=== PATIENT | female | born 1940 | race Caucasian/White ===

== ENCOUNTER 2020-09-12 11:45 | Inpatient (IN) | payer MEDICARE ==
[2020-09-12] MEDS ORDERED: Ondansetron 4 MG/2 ML SDV IVPUSH ONE (11:57)
[2020-09-12] MEDS ORDERED: Sodium Chloride 0.9% 1,000 ML IV SCH ×2 (12:00→13:30)
--- NOTE | 2020-09-12 12:23 | EDM.PDOC ---
ED HPI GENERAL MEDICAL PROBLEM - General Stated Complaint: ER Time Seen by Provider: 09/12/20 11:45 Source of Information: Reports: Patient, Family History Limitations: Reports: No Limitations - History of Present Illness INITIAL COMMENTS - FREE TEXT/NARRATIVE: Pt. presents to ER with complaints of fatigue, myalgias, arthralgias, dysuria, discolored urine, and low back pain. She states that she "thinks she is getting a bladder infection". Daughter states that she has been symptomatic for several days. She has been consuming cranberry juice. Pt. states that the symptoms have gotten worse today. She complains of more fatigue and malaise. She states that she feels chilled. She also complains of some lower abdominal/suprapubic pain consistent with UTIs in the past. She also has some CVA tenderness. Pt. states that she has not been around any ill contacts. Denies any cough. No shortness of breath. She denies any chest pain. No rashes or skin eruptions. Daughter states that she has been alert and oriented, but is less active. Location: Reports: Generalized Lower Abdominal Pain Score (Numeric/FACES): 3 - Related Data Allergies Allergy/AdvReac Type Severity Reaction Status Date / Time Penicillins Allergy Hives Verified 09/12/20 13:02 Home Meds: Home Meds Amitriptyline [Elavil] 25 mg PO BEDTIME 07/05/16 [History] Aspirin [Halfprin] 162 mg PO DAILY 07/05/16 [History] Calcium Carbonate/Vitamin D3 [Calcium 500-Vit D3 200 Tablet] 1 tab PO DAILY 07/05/16 [History] Cholecalciferol (Vitamin D3) [Vitamin D3] 2,000 unit PO DAILY 07/05/16 [History] Ciprofloxacin [Ciloxan 0.3% Ophth Soln] 1 drop OP TID 07/05/16 [History] Famotidine [Pepcid] 20 mg PO DAILY 07/05/16 [History] Losartan [Cozaar] 100 mg PO DAILY 07/05/16 [History] Melatonin 3 mg PO BEDTIME 07/05/16 [History] Metoprolol Tartrate [Lopressor] 50 mg PO BID 07/05/16 [History] Nepafenac [Nevanac] 1 drop OP TID 07/05/16 [History] amLODIPine [Norvasc] 5 mg PO DAILY 07/05/16 [History] prednisoLONE Acetate [Pred Forte 1% Ophth Susp] 1 drop OP TID 07/05/16 [History] Multivitamin [Multivitamins] 1 tab PO DAILY 09/07/16 [History] Past Medical History HEENT History: Reports: Cataract Cardiovascular History: Reports: Hypertension Respiratory History: Reports: None Gastrointestinal History: Reports: Celiac Disease, Other (See Below) Other Gastrointestinal History: celiac disease Genitourinary History: Reports: None Musculoskeletal History: Reports: Other (See Below) Other Musculoskeletal History: rt patella fx Neurological History: Reports: TIA Psychiatric History: Reports: Other (See Below) Other Psychiatric History: insomnia Endocrine/Metabolic History: Reports: Osteoporosis Hematologic History: Reports: None Immunologic History: Reports: None Oncologic (Cancer) History: Reports: None Dermatologic History: Reports: None - Past Surgical History HEENT Surgical History: Reports: Cataract Surgery Musculoskeletal Surgical History: Reports: Other (See Below) Social & Family History - Caffeine Use Caffeine Use: Reports: Coffee ED ROS GENERAL - Review of Systems Review Of Systems: See Below Constitutional: Reports: Chills, Malaise, Weakness, Fatigue HEENT: Reports: No Symptoms Respiratory: Reports: No Symptoms Cardiovascular: Reports: No Symptoms Endocrine: Reports: No Symptoms GI/Abdominal: Reports: Abdominal Pain, Nausea. Denies: Anorexia, Black Stool, Bloody Stool, Constipation, Diarrhea, Difficulty Swallowing, Distension, Hematemesis, Hematochezia, Melena, Stool Incontinence, Vomiting : Reports: Dysuria, Flank Pain, Frequency, Pain, Urgency Musculoskeletal: Reports: No Symptoms Skin: Reports: No Symptoms Neurological: Reports: No Symptoms, Dizziness, Headache. Denies: Confusion, Numbness, Paresthesia, Trouble Speaking, Difficulty Walking, Change in Speech, Gait Disturbance Psychiatric: Reports: No Symptoms Hematologic/Lymphatic: Reports: No Symptoms Immunologic: Reports: No Symptoms ED EXAM, GENERAL - Physical Exam Exam: See Below Exam Limited By: No Limitations General Appearance: Alert, WD/WN, No Apparent Distress Nose: Normal Mucosa, No Blood Throat/Mouth: Normal Inspection, Normal Lips, Normal Teeth, Normal Oropharynx, Normal Voice, No Airway Compromise Head: Atraumatic, Normocephalic Neck: Normal Inspection, Supple, Non-Tender, Full Range of Motion Respiratory/Chest: No Respiratory Distress, Lungs Clear, Normal Breath Sounds, No Accessory Muscle Use, Chest Non-Tender Cardiovascular: Normal Peripheral Pulses, Regular Rate, Rhythm, No Edema, No JVD Peripheral Pulses: 4+: Radial (L) GI/Abdominal: Soft, Non-Tender, No Organomegaly, No Distention, No Mass (Female) Exam: Deferred Rectal (Female) Exam: Deferred Back Exam: Normal Inspection, CVA Tenderness (L), CVA Tenderness (R) Extremities: Normal Inspection, Normal Range of Motion, Non-Tender, No Pedal Edema, Normal Capillary Refill Neurological: Alert, Oriented, CN II-XII Intact, Normal Cognition, Normal Gait, Normal Reflexes, No Motor/Sensory Deficits Psychiatric: Normal Affect, Normal Mood Skin Exam: Warm, Dry, Intact, Normal Color, No Rash Lymphatic: No Adenopathy Course - Vital Signs Last Recorded V/S: Last Vital Signs Temp 37.1 C 09/12/20 11:50 Pulse 113 H 09/12/20 11:50 Resp 16 09/12/20 11:50 BP 162/77 H 09/12/20 11:50 Pulse Ox 95 09/12/20 11:50 - Orders/Labs/Meds Orders: Active Orders 24 hr Category Date Time Status Patient Status [ADT] Routine ADT 09/12/20 13:07 Active CULTURE BLOOD [BC] Stat Lab 09/12/20 12:12 Received CULTURE BLOOD [BC] Stat Lab 09/12/20 12:16 Received CULTURE URINE [RM] Stat Lab 09/12/20 11:55 Received Sodium Chloride 0.9% [Normal Saline] 1,000 ml Med 09/12/20 12:00 Active IV ASDIRECTED Sodium Chloride 0.9% [Saline Flush] Med 09/12/20 11:52 Active 10 ml FLUSH ASDIRECTED PRN Blood Culture x2 Reflex Set [OM.PC] Stat Oth 09/12/20 11:52 Ordered Peripheral IV Insertion Adult [OM.PC] Routine Oth 09/12/20 11:52 Ordered Medication Orders Sodium Chloride (Normal Saline) 1,000 mls @ 500 mls/hr IV ASDIRECTED JONATHAN Last Admin: 09/12/20 12:20 Dose: 500 mls/hr Documented by: ZULEIKA Sodium Chloride (Saline Flush) 10 ml FLUSH ASDIRECTED PRN PRN Reason: Keep Vein Open Labs: Laboratory Tests 09/12/20 09/12/20 09/12/20 Range/Units 11:55 12:12 12:12 WBC (4.0-10.0) x10^3/uL RBC (4.00-5.50) x10^6/uL Hgb (12.0-16.0) g/dL Hct (33.0-47.0) % MCV (78.0-93.0) fL MCH (26.0-32.0) pg MCHC (32.0-36.0) g/dL RDW Coeff of Anette (10.0-15.0) % Plt Count (130-400) x10^3/uL Neut % (Auto) (50.0-80.0) % Lymph % (Auto) (25.0-50.0) % [place] % (Auto) (2.0-11.0) % Eos % (Auto) (0.0-4.0) % Baso % (Auto) (0.2-1.2) % PT 10.4 (9.5-12.3) SEC INR 1.0 L (2.0-3.5) APTT 27.0 (25.6-32.8) SEC Sodium (136-145) mmol/L Potassium (3.5-5.1) mmol/L Chloride (98-107) mmol/L Carbon Dioxide (21-32) mmol/L Anion Gap (10-20) mmol/L BUN (7-18) mg/dL Creatinine (0.55-1.02) mg/dL Est Cr Clr Drug Dosing Estimated GFR (MDRD) Glucose (74-106) mg/dL Lactic Acid (0.4-2.0) mmol/L Calcium (8.5-10.1) mg/dL Corrected Calcium (8.5-10.1) mg/dL Magnesium (1.8-2.4) mg/dL Total Bilirubin (0.2-1.0) mg/dL AST (15-37) U/L ALT (14-59) U/L Alkaline Phosphatase (46-116) U/L C-Reactive Protein (<=0.9) mg/dL Total Protein (6.4-8.2) g/dL Albumin (3.4-5.0) g/dL Globulin Albumin/Globulin Ratio Urine Color Yellow (YELLOW) Urine Appearance Cloudy H (CLEAR) Urine pH 7.0 (5.0-8.0) Ur Specific [place] 1.025 Urine Protein 100 H (NEGATIVE) mg/dL Urine Glucose (UA) Negative (NEGATIVE) mg/dL Urine Ketones Negative (NEGATIVE) mg/dL Urine Occult Blood Moderate H (NEGATIVE) Urine Nitrite Positive H (NEGATIVE) Urine Bilirubin Negative (NEGATIVE) Urine Urobilinogen 1.0 (0.2) EU/dL Ur Leukocyte Esterase Large H (NEGATIVE) Urine RBC 5-10 H (NOT SEEN) /HPF Urine WBC Packed H (NOT SEEN) /HPF Ur Squamous Epith Cells Not seen (NEGATIVE) /HPF Urine Bacteria Few H (NEGATIVE) /HPF Urine Mucus Not seen (NEGATIVE) /LPF SARS CoV-2 RNA Rapid ENOC (NEGATIVE) 09/12/20 09/12/20 09/12/20 Range/Units 12:16 12:16 12:16 WBC 12.9 H (4.0-10.0) x10^3/uL RBC 4.61 (4.00-5.50) x10^6/uL Hgb 13.5 (12.0-16.0) g/dL Hct 41.0 (33.0-47.0) % MCV 88.9 (78.0-93.0) fL MCH 29.3 (26.0-32.0) pg MCHC 32.9 (32.0-36.0) g/dL RDW Coeff of Anette 13.2 (10.0-15.0) % Plt Count 246 (130-400) x10^3/uL Neut % (Auto) 90.2 H (50.0-80.0) % Lymph % (Auto) 4.6 L (25.0-50.0) % [place] % (Auto) 5.1 (2.0-11.0) % Eos % (Auto) 0.0 (0.0-4.0) % Baso % (Auto) 0.1 L (0.2-1.2) % PT (9.5-12.3) SEC INR (2.0-3.5) APTT (25.6-32.8) SEC Sodium 137 (136-145) mmol/L Potassium 3.8 (3.5-5.1) mmol/L Chloride 101 (98-107) mmol/L Carbon Dioxide 24 (21-32) mmol/L Anion Gap 15.8 (10-20) mmol/L BUN 16 (7-18) mg/dL Creatinine 1.2 H (0.55-1.02) mg/dL Est Cr Clr Drug Dosing TNP Estimated GFR (MDRD) 43 Glucose 152 H (74-106) mg/dL Lactic Acid 4.0 H* (0.4-2.0) mmol/L Calcium 9.4 (8.5-10.1) mg/dL Corrected Calcium 10.12 H (8.5-10.1) mg/dL Magnesium 1.6 L (1.8-2.4) mg/dL Total Bilirubin 0.6 (0.2-1.0) mg/dL AST 20 (15-37) U/L ALT 23 (14-59) U/L Alkaline Phosphatase 94 (46-116) U/L C-Reactive Protein 5.5 H (<=0.9) mg/dL Total Protein 6.6 (6.4-8.2) g/dL Albumin 3.1 L (3.4-5.0) g/dL Globulin 3.5 Albumin/Globulin Ratio 0.89 Urine Color (YELLOW) Urine Appearance (CLEAR) Urine pH (5.0-8.0) Ur Specific [place] Urine Protein (NEGATIVE) mg/dL Urine Glucose (UA) (NEGATIVE) mg/dL Urine Ketones (NEGATIVE) mg/dL Urine Occult Blood (NEGATIVE) Urine Nitrite (NEGATIVE) Urine Bilirubin (NEGATIVE) Urine Urobilinogen (0.2) EU/dL Ur Leukocyte Esterase (NEGATIVE) Urine RBC (NOT SEEN) /HPF Urine WBC (NOT SEEN) /HPF Ur Squamous Epith Cells (NEGATIVE) /HPF Urine Bacteria (NEGATIVE) /HPF Urine Mucus (NEGATIVE) /LPF SARS CoV-2 RNA Rapid ENOC (NEGATIVE) 09/12/20 Range/Units 12:19 WBC (4.0-10.0) x10^3/uL RBC (4.00-5.50) x10^6/uL Hgb (12.0-16.0) g/dL Hct (33.0-47.0) % MCV (78.0-93.0) fL MCH (26.0-32.0) pg MCHC (32.0-36.0) g/dL RDW Coeff of Anette (10.0-15.0) % Plt Count (130-400) x10^3/uL Neut % (Auto) (50.0-80.0) % Lymph % (Auto) (25.0-50.0) % [place] % (Auto) (2.0-11.0) % Eos % (Auto) (0.0-4.0) % Baso % (Auto) (0.2-1.2) % PT (9.5-12.3) SEC INR (2.0-3.5) APTT (25.6-32.8) SEC Sodium (136-145) mmol/L Potassium (3.5-5.1) mmol/L Chloride (98-107) mmol/L Carbon Dioxide (21-32) mmol/L Anion Gap (10-20) mmol/L BUN (7-18) mg/dL Creatinine (0.55-1.02) mg/dL Est Cr Clr Drug Dosing Estimated GFR (MDRD) Glucose (74-106) mg/dL Lactic Acid (0.4-2.0) mmol/L Calcium (8.5-10.1) mg/dL Corrected Calcium (8.5-10.1) mg/dL Magnesium (1.8-2.4) mg/dL Total Bilirubin (0.2-1.0) mg/dL AST (15-37) U/L ALT (14-59) U/L Alkaline Phosphatase (46-116) U/L C-Reactive Protein (<=0.9) mg/dL Total Protein (6.4-8.2) g/dL Albumin (3.4-5.0) g/dL Globulin Albumin/Globulin Ratio Urine Color (YELLOW) Urine Appearance (CLEAR) Urine pH (5.0-8.0) Ur Specific [place] Urine Protein (NEGATIVE) mg/dL Urine Glucose (UA) (NEGATIVE) mg/dL Urine Ketones (NEGATIVE) mg/dL Urine Occult Blood (NEGATIVE) Urine Nitrite (NEGATIVE) Urine Bilirubin (NEGATIVE) Urine Urobilinogen (0.2) EU/dL Ur Leukocyte Esterase (NEGATIVE) Urine RBC (NOT SEEN) /HPF Urine WBC (NOT SEEN) /HPF Ur Squamous Epith Cells (NEGATIVE) /HPF Urine Bacteria (NEGATIVE) /HPF Urine Mucus (NEGATIVE) /LPF SARS CoV-2 RNA Rapid ENOC Negative (NEGATIVE) Meds: Medications Generic Name Dose Route Start Last Admin Trade Name Sonya PRN Reason Stop Dose Admin Sodium Chloride 1,000 mls @ 500 mls/hr 09/12/20 12:00 09/12/20 12:20 Normal Saline IV 500 mls/hr ASDIRECTED JONATHAN Administration Sodium Chloride 10 ml 09/12/20 11:52 Saline Flush FLUSH ASDIRECTED PRN Keep Vein Open Discontinued Medications Generic Name Dose Route Start Last Admin Trade Name Sonya PRN Reason Stop Dose Admin Ceftriaxone Sodium 2 gm 09/12/20 12:36 09/12/20 12:40 Rocephin IVPUSH 09/12/20 12:37 2 gm STAT ONE Administration Ondansetron HCl 4 mg 09/12/20 11:57 09/12/20 12:25 Zofran IVPUSH 09/12/20 11:58 4 mg ONETIME ONE Administration Departure - Departure Time of Disposition: 13:18 Disposition: DC/Tfer to [facility] 02 Clinical Impression: UTI, Urinary tract infectious disease, Lactic acidosis - Discharge Information Sepsis Event Note (ED) - Focused Exam Vital Signs: Vital Signs Temp Pulse Resp BP Pulse Ox 09/12/20 11:50 37.1 C 113 H 16 162/77 H 95 - Problem List Review Problem List Initiated/Reviewed/Updated: Yes - My Orders Last 24 Hours: My Active Orders 09/12/20 11:52 Sodium Chloride 0.9% [Saline Flush] 10 ml FLUSH ASDIRECTED PRN Blood Culture x2 Reflex Set [OM.PC] Stat Peripheral IV Insertion Adult [OM.PC] Routine 09/12/20 11:55 CULTURE URINE [RM] Stat 09/12/20 12:00 Sodium Chloride 0.9% [Normal Saline] 1,000 ml IV ASDIRECTED 09/12/20 12:12 CULTURE BLOOD [BC] Stat 09/12/20 12:16 CULTURE BLOOD [BC] Stat 09/12/20 13:07 Patient Status [ADT] Routine - Assessment/Plan Last 24 Hours: My Active Orders 09/12/20 11:52 Sodium Chloride 0.9% [Saline Flush] 10 ml FLUSH ASDIRECTED PRN Blood Culture x2 Reflex Set [OM.PC] Stat Peripheral IV Insertion Adult [OM.PC] Routine 09/12/20 11:55 CULTURE URINE [RM] Stat 09/12/20 12:00 Sodium Chloride 0.9% [Normal Saline] 1,000 ml IV ASDIRECTED 09/12/20 12:12 CULTURE BLOOD [BC] Stat 09/12/20 12:16 CULTURE BLOOD [BC] Stat 09/12/20 13:07 Patient Status [ADT] Routine Plan: Pt. will be admitted acutely for UTI with lactic acidosis. She was given a liter of normal saline during her stay in ER. She was also given zofran 4mg IV for nausea. She had positive nitrates and leukocytes, and lactic acid was elevated. She was given rocephin 2 gm IV in ER. Dr. Medina will be attending/admitting.
[2020-09-12] MEDS ORDERED: cefTRIAXone 2 GM Vial IVPUSH ONE (12:36)
[2020-09-12 12:46] LABS: CHLORIDE,CL 101 mmol/L (98-107); SODIUM,NA 137 mmol/L (136-145)
[2020-09-12 12:47] LABS: ANION GAP 15.8 mmol/L (10-20)
[2020-09-12] MEDS ORDERED: Ondansetron 4 MG/2 ML SDV IVPUSH PRN (14:54)
[2020-09-12] MEDS: Enoxaparin 40 MG/0.4 ML Syringe SUBCUT SCH (15:56)
[2020-09-12] MEDS: Magnesium Oxide 400 MG Tab PO SCH (15:56)
--- NOTE | 2020-09-12 16:00 | HP ---
CHIEF COMPLAINT: Not feeling well and dry heaves. HISTORY OF PRESENT ILLNESS: This is an 80-year-old female who has been having some burning with urination, but no blood for the past week. She felt it coming on, so she tried to drink more cranberry juice. She has had previous bladder infections, but none for a couple of years. She has also had a cough, but attributes that to allergies from her cats. She had a negative COVID test in the ER, but did have a positive UA and got 2 g of Rocephin. She has had no fever, but has had shaking chills. She did not vomit other than dry heaves. She is not short of breath. She has been having low back pain. ALLERGIES: Do include penicillin, and Bactrim causes nausea, vomiting, and weakness. MEDICATIONS: Her medication list is reviewed, and she does take: 1. Wellbutrin 100 mg daily for moods. 2. Pepcid 20 mg daily. 3. Diovan 320 daily. 4. Amlodipine 5 mg daily. 5. Lopressor 50 mg daily. 6. Pamelor 25 mg at night. 7. Aspirin 162 mg daily. 8. Melatonin 3 mg at bedtime. 9. Calcium and D. 10.Multivitamin. 11.Vitamin D 2000 units daily. PAST MEDICAL HISTORY: Includes a remote TIA many years ago, she takes aspirin; celiac disease; essential hypertension; insomnia; mood disorder; and osteoporosis. PAST SURGICAL HISTORY: The patient has had wrist surgery on the left. She has had cataracts. FAMILY HISTORY: Both parents are . A couple of sisters and a brother are also . Sister did have heart disease. Mother had heart disease. Father had prostate cancer. REVIEW OF SYSTEMS: General: The patient is not aware of any weight changes otherwise. HEENT: No sore throat. Cardiac: No chest pain. No palpitations. Respiratory: She has had a cough, but no shortness of breath. Abdomen: No pain or nausea. Did have the dry heaves; those have resolved. No diarrhea or constipation. Musculoskeletal: She has had the low back pain. Otherwise, no new aches or pains otherwise. Neurologic: She does not have any confusion. She just generally does feel fatigued. PHYSICAL EXAMINATION: Vital Signs: On the floor, her temperature is 100.2; weight 58.96 kg; pulse down to 94, it was 113 in the ER; blood pressure 109/59, initially 162/77; respiratory rate 16; and O2 of 95 on room air. General: She is in no acute distress. Heart: Regular rate and rhythm with murmur. Lungs: Lung sounds are decreased with crackles noted in the right base. No crackles in the left base. Abdomen: Nondistended and nontender. Extremities: Warm and dry. No edema. Back: Nontender. Mental Status: She is alert and orientated x3. LABORATORY DATA: White count 12.9, hemoglobin 13.5, and platelets 246. INR 1. Sodium 137, potassium 3.8, chloride 101, bicarbonate 24, BUN 16, creatinine 1.2, and glucose 152. Lactic 4.0. Calcium corrected 10.1. Magnesium 1.6. AST 20, ALT 23, and bilirubin 0.6. CRP 5.5. Alkaline phosphatase 94 and albumin 3.1. UA: Large leukocyte esterase and packed wbc's, 5 to 10 rbc's. Negative COVID. Chest x-ray ordered and pending. ASSESSMENT AND PLAN: 1. Sepsis secondary to urinary tract infection. The patient is having classic symptoms and a positive UA. She already got 2 g of Rocephin. She seems to be tolerating that. We will await her culture. Blood cultures have also been sent. 2. Urinary tract infection. She does have some back pain, but not flank pain to suggest pyelonephritis. No further imaging is indicated. Her last urinary tract infection was a couple of years ago, and her culture was mixed microflora. 3. Hypomagnesemia. We will replace orally. 4. Essential hypertension. We will continue home medications. 5. Mood disorder. We will continue home medications. 6. History of stroke. We will continue aspirin. 7. Osteoporosis. PLAN: The patient will be admitted for acute cares. We will continue home medications. Although her Lopressor is only 50 mg once daily, normally it would be b.i.d. dosing. Although it seems that was changed last year, that can be further clarified with her PCP. Adjustments can be made here as needed for blood pressure. We will repeat a lactic acid. I will give her 1 g of Rocephin daily. She received 1 L of fluids. I do not feel she will need further fluids. I think she can be allowed to eat and drink on her own. We will give her IV Zofran if needed for nausea. Her dry heaving has already resolved. If it resumes, I would do some abdominal x-rays as well. She elects to be a code level 3. For DVT prophylaxis, I will place her on Lovenox. Anticipate she will need at least 1 to 2 nights of acute care and IV antibiotics. Did discuss with her that possibly her blood cultures could return positive given the symptoms of chills and dry heaves. CXR also ordered. MKA: 09/12/2020 14:55:17 MODL: 09/12/2020 15:47:10 /[id number] ALEX
[2020-09-12] MEDS: Aspirin 81 MG Tab.EC PO SCH (17:11)
[2020-09-12] MEDS: Metoprolol Tartrate 25 MG Tab PO SCH ×2 (17:12→19:49)
[2020-09-12] MEDS: Melatonin 3 MG Tab PO SCH (19:45)
[2020-09-12] MEDS ORDERED: Acetaminophen 325 MG Tab PO PRN ×2 (20:57→21:11)
[2020-09-13 07:06] LABS: ANION GAP 9.8 mmol/L (10-20)
--- NOTE | 2020-09-13 07:53 | CR ---
[id number] RAD/RAD Chest PA or AP 1V EXAM: RAD Chest PA or AP 1V INDICATION: COUGH. COMPARISON: None. DISCUSSION: Cardiomediastinal silhouette is normal in size and contour. Bilateral symmetric lung hyperinflation, nonspecific. Lungs are clear. No pleural effusion or pneumothorax. IMPRESSION: As above. Tye Elam MD 09/13/20 0752 Thank you for allowing us to participate in the care of your patient.
[2020-09-13] MEDS: Losartan 50 MG Tab PO SCH (08:03)
[2020-09-13] MEDS: Famotidine 20 MG Tab PO SCH (08:03)
[2020-09-13] MEDS: Magnesium Oxide 400 MG Tab PO SCH (08:03)
[2020-09-13] MEDS: Multivitamins with Iron/Calcium/Folic Acid/Minerals Tab PO SCH (08:03)
[2020-09-13] MEDS: Calcium Carbonate/Vitamin D3 1250 MG-200 Unit Tab PO SCH (08:03)
[2020-09-13] MEDS: Aspirin 81 MG Tab.EC PO SCH (08:03)
[2020-09-13] MEDS: Metoprolol Tartrate 25 MG Tab PO SCH ×2 (08:05→19:29)
[2020-09-13] MEDS: amLODIPine 5 MG Tab PO SCH (08:05)
[2020-09-13] MEDS: cefTRIAXone 1 GM Vial IVPUSH SCH (08:06)
--- NOTE | 2020-09-13 09:45 | PCM.PN ---
- General Info Date of Service: 09/13/20 Admission Dx/Problem (Free Text): Sepsis secondary to UTI Subjective Update: Keri is an 80-year-old female who was admitted on 09/12/2020 for classic UTI symptoms. On arrival to the ER she was noted to meet criteria for sepsis with a fever, leukocytosis, lactic acidosis, and positive UA. She was initiated on 2 g of Rocephin and admitted for further monitoring. She did well overnight. This morning the patient reports that she is feeling a little bit better. Urinary symptoms have improved slightly. She still has a little bit of lower back pain. Denies any ongoing fevers or chills (last objective fever reported around 8 PM). Eating and drinking fine. In review of the labs her white cell count has improved slightly today. Her blood cultures did grow out gram- negative rods in 2 out of 2 tubes. - Patient Data Vitals - Most Recent: Last Vital Signs Temp 97.9 F 09/13/20 05:23 Pulse 74 09/13/20 05:23 Resp 16 09/13/20 05:23 BP 117/54 L 09/13/20 08:03 Pulse Ox 99 09/13/20 05:23 Weight - Most Recent: 130 lb I&O - Last 24 Hours: Intake & Output 09/12/20 09/13/20 09/13/20 22:59 06:59 14:59 Intake Total 120 200 240 Output Total 350 Balance 120 -150 240 Lab Results Last 24 Hours: Laboratory Results - last 24 hr 09/12/20 09/12/20 09/12/20 Range/Units 11:55 12:12 12:12 WBC (4.0-10.0) x10^3/uL RBC (4.00-5.50) x10^6/uL Hgb (12.0-16.0) g/dL Hct (33.0-47.0) % MCV (78.0-93.0) fL MCH (26.0-32.0) pg MCHC (32.0-36.0) g/dL RDW Coeff of Anette (10.0-15.0) % Plt Count (130-400) x10^3/uL Neut % (Auto) (50.0-80.0) % Lymph % (Auto) (25.0-50.0) % Dickens % (Auto) (2.0-11.0) % Eos % (Auto) (0.0-4.0) % Baso % (Auto) (0.2-1.2) % PT 10.4 (9.5-12.3) SEC INR 1.0 L (2.0-3.5) APTT 27.0 (25.6-32.8) SEC Sodium (136-145) mmol/L Potassium (3.5-5.1) mmol/L Chloride (98-107) mmol/L Carbon Dioxide (21-32) mmol/L Anion Gap (10-20) mmol/L BUN (7-18) mg/dL Creatinine (0.55-1.02) mg/dL Est Cr Clr Drug Dosing Estimated GFR (MDRD) Glucose (74-106) mg/dL POC Glucose (74-106) mg/dL Lactic Acid (0.4-2.0) mmol/L Calcium (8.5-10.1) mg/dL Corrected Calcium (8.5-10.1) mg/dL Magnesium (1.8-2.4) mg/dL Total Bilirubin (0.2-1.0) mg/dL AST (15-37) U/L ALT (14-59) U/L Alkaline Phosphatase (46-116) U/L C-Reactive Protein (<=0.9) mg/dL Total Protein (6.4-8.2) g/dL Albumin (3.4-5.0) g/dL Globulin Albumin/Globulin Ratio Urine Color Yellow (YELLOW) Urine Appearance Cloudy H (CLEAR) Urine pH 7.0 (5.0-8.0) Ur Specific [place] 1.025 Urine Protein 100 H (NEGATIVE) mg/dL Urine Glucose (UA) Negative (NEGATIVE) mg/dL Urine Ketones Negative (NEGATIVE) mg/dL Urine Occult Blood Moderate H (NEGATIVE) Urine Nitrite Positive H (NEGATIVE) Urine Bilirubin Negative (NEGATIVE) Urine Urobilinogen 1.0 (0.2) EU/dL Ur Leukocyte Esterase Large H (NEGATIVE) Urine RBC 5-10 H (NOT SEEN) /HPF Urine WBC Packed H (NOT SEEN) /HPF Ur Squamous Epith Cells Not seen (NEGATIVE) /HPF Urine Bacteria Few H (NEGATIVE) /HPF Urine Mucus Not seen (NEGATIVE) /LPF SARS CoV-2 RNA Rapid ENOC (NEGATIVE) 09/12/20 09/12/20 09/12/20 Range/Units 12:16 12:16 12:16 WBC 12.9 H (4.0-10.0) x10^3/uL RBC 4.61 (4.00-5.50) x10^6/uL Hgb 13.5 (12.0-16.0) g/dL Hct 41.0 (33.0-47.0) % MCV 88.9 (78.0-93.0) fL MCH 29.3 (26.0-32.0) pg MCHC 32.9 (32.0-36.0) g/dL RDW Coeff of Anette 13.2 (10.0-15.0) % Plt Count 246 (130-400) x10^3/uL Neut % (Auto) 90.2 H (50.0-80.0) % Lymph % (Auto) 4.6 L (25.0-50.0) % Dickens % (Auto) 5.1 (2.0-11.0) % Eos % (Auto) 0.0 (0.0-4.0) % Baso % (Auto) 0.1 L (0.2-1.2) % PT (9.5-12.3) SEC INR (2.0-3.5) APTT (25.6-32.8) SEC Sodium 137 (136-145) mmol/L Potassium 3.8 (3.5-5.1) mmol/L Chloride 101 (98-107) mmol/L Carbon Dioxide 24 (21-32) mmol/L Anion Gap 15.8 (10-20) mmol/L BUN 16 (7-18) mg/dL Creatinine 1.2 H (0.55-1.02) mg/dL Est Cr Clr Drug Dosing TNP Estimated GFR (MDRD) 43 Glucose 152 H (74-106) mg/dL POC Glucose (74-106) mg/dL Lactic Acid 4.0 H* (0.4-2.0) mmol/L Calcium 9.4 (8.5-10.1) mg/dL Corrected Calcium 10.12 H (8.5-10.1) mg/dL Magnesium 1.6 L (1.8-2.4) mg/dL Total Bilirubin 0.6 (0.2-1.0) mg/dL AST 20 (15-37) U/L ALT 23 (14-59) U/L Alkaline Phosphatase 94 (46-116) U/L C-Reactive Protein 5.5 H (<=0.9) mg/dL Total Protein 6.6 (6.4-8.2) g/dL Albumin 3.1 L (3.4-5.0) g/dL Globulin 3.5 Albumin/Globulin Ratio 0.89 Urine Color (YELLOW) Urine Appearance (CLEAR) Urine pH (5.0-8.0) Ur Specific [place] Urine Protein (NEGATIVE) mg/dL Urine Glucose (UA) (NEGATIVE) mg/dL Urine Ketones (NEGATIVE) mg/dL Urine Occult Blood (NEGATIVE) Urine Nitrite (NEGATIVE) Urine Bilirubin (NEGATIVE) Urine Urobilinogen (0.2) EU/dL Ur Leukocyte Esterase (NEGATIVE) Urine RBC (NOT SEEN) /HPF Urine WBC (NOT SEEN) /HPF Ur Squamous Epith Cells (NEGATIVE) /HPF Urine Bacteria (NEGATIVE) /HPF Urine Mucus (NEGATIVE) /LPF SARS CoV-2 RNA Rapid ENOC (NEGATIVE) 09/12/20 09/12/20 09/12/20 Range/Units 12:19 15:25 17:27 WBC (4.0-10.0) x10^3/uL RBC (4.00-5.50) x10^6/uL Hgb (12.0-16.0) g/dL Hct (33.0-47.0) % MCV (78.0-93.0) fL MCH (26.0-32.0) pg MCHC (32.0-36.0) g/dL RDW Coeff of Anette (10.0-15.0) % Plt Count (130-400) x10^3/uL Neut % (Auto) (50.0-80.0) % Lymph % (Auto) (25.0-50.0) % Dickens % (Auto) (2.0-11.0) % Eos % (Auto) (0.0-4.0) % Baso % (Auto) (0.2-1.2) % PT (9.5-12.3) SEC INR (2.0-3.5) APTT (25.6-32.8) SEC Sodium (136-145) mmol/L Potassium (3.5-5.1) mmol/L Chloride (98-107) mmol/L Carbon Dioxide (21-32) mmol/L Anion Gap (10-20) mmol/L BUN (7-18) mg/dL Creatinine (0.55-1.02) mg/dL Est Cr Clr Drug Dosing Estimated GFR (MDRD) Glucose (74-106) mg/dL POC Glucose 183 H (74-106) mg/dL Lactic Acid 2.0 (0.4-2.0) mmol/L Calcium (8.5-10.1) mg/dL Corrected Calcium (8.5-10.1) mg/dL Magnesium (1.8-2.4) mg/dL Total Bilirubin (0.2-1.0) mg/dL AST (15-37) U/L ALT (14-59) U/L Alkaline Phosphatase (46-116) U/L C-Reactive Protein (<=0.9) mg/dL Total Protein (6.4-8.2) g/dL Albumin (3.4-5.0) g/dL Globulin Albumin/Globulin Ratio Urine Color (YELLOW) Urine Appearance (CLEAR) Urine pH (5.0-8.0) Ur Specific [place] Urine Protein (NEGATIVE) mg/dL Urine Glucose (UA) (NEGATIVE) mg/dL Urine Ketones (NEGATIVE) mg/dL Urine Occult Blood (NEGATIVE) Urine Nitrite (NEGATIVE) Urine Bilirubin (NEGATIVE) Urine Urobilinogen (0.2) EU/dL Ur Leukocyte Esterase (NEGATIVE) Urine RBC (NOT SEEN) /HPF Urine WBC (NOT SEEN) /HPF Ur Squamous Epith Cells (NEGATIVE) /HPF Urine Bacteria (NEGATIVE) /HPF Urine Mucus (NEGATIVE) /LPF SARS CoV-2 RNA Rapid ENOC Negative (NEGATIVE) 09/13/20 09/13/20 09/13/20 Range/Units 05:22 06:20 06:20 WBC 10.7 H (4.0-10.0) x10^3/uL RBC 4.13 (4.00-5.50) x10^6/uL Hgb 12.1 (12.0-16.0) g/dL Hct 37.3 (33.0-47.0) % MCV 90.3 (78.0-93.0) fL MCH 29.3 (26.0-32.0) pg MCHC 32.4 (32.0-36.0) g/dL RDW Coeff of Anette 13.2 (10.0-15.0) % Plt Count 226 (130-400) x10^3/uL Neut % (Auto) 75.0 (50.0-80.0) % Lymph % (Auto) 15.5 L (25.0-50.0) % Dickens % (Auto) 8.7 (2.0-11.0) % Eos % (Auto) 0.7 (0.0-4.0) % Baso % (Auto) 0.1 L (0.2-1.2) % PT (9.5-12.3) SEC INR (2.0-3.5) APTT (25.6-32.8) SEC Sodium 137 (136-145) mmol/L Potassium 3.8 (3.5-5.1) mmol/L Chloride 102 (98-107) mmol/L Carbon Dioxide 29 (21-32) mmol/L Anion Gap 9.8 L (10-20) mmol/L BUN 18 (7-18) mg/dL Creatinine 1.2 H (0.55-1.02) mg/dL Est Cr Clr Drug Dosing 31.21 Estimated GFR (MDRD) 43 Glucose 101 (74-106) mg/dL POC Glucose 104 (74-106) mg/dL Lactic Acid (0.4-2.0) mmol/L Calcium 8.9 (8.5-10.1) mg/dL Corrected Calcium (8.5-10.1) mg/dL Magnesium (1.8-2.4) mg/dL Total Bilirubin (0.2-1.0) mg/dL AST (15-37) U/L ALT (14-59) U/L Alkaline Phosphatase (46-116) U/L C-Reactive Protein (<=0.9) mg/dL Total Protein (6.4-8.2) g/dL Albumin (3.4-5.0) g/dL Globulin Albumin/Globulin Ratio Urine Color (YELLOW) Urine Appearance (CLEAR) Urine pH (5.0-8.0) Ur Specific [place] Urine Protein (NEGATIVE) mg/dL Urine Glucose (UA) (NEGATIVE) mg/dL Urine Ketones (NEGATIVE) mg/dL Urine Occult Blood (NEGATIVE) Urine Nitrite (NEGATIVE) Urine Bilirubin (NEGATIVE) Urine Urobilinogen (0.2) EU/dL Ur Leukocyte Esterase (NEGATIVE) Urine RBC (NOT SEEN) /HPF Urine WBC (NOT SEEN) /HPF Ur Squamous Epith Cells (NEGATIVE) /HPF Urine Bacteria (NEGATIVE) /HPF Urine Mucus (NEGATIVE) /LPF SARS CoV-2 RNA Rapid ENOC (NEGATIVE) David Results Last 24 Hours: Microbiology 09/12/20 11:55 Urine Culture - Preliminary Urine, Clean Catch Gram Negative Rods 09/12/20 12:12 Anaerobic Blood Culture - Preliminary Blood - Venous Gram Negative Rods 09/12/20 12:19 Influenza Type A Antigen Screen - Final Nasal, Unspecified NEGATIVE INFLUENZA A VIRUS AG REFERENCE RANGE: NEGATIVE Influenza Type B Antigen Screen - Final NEGATIVE INFLUENZA B VIRUS AG REFERENCE RANGE: NEGATIVE Med Orders - Current: Current Medications Acetaminophen (Tylenol) 650 mg PO Q4H PRN PRN Reason: Fever Amlodipine Besylate (Norvasc) 5 mg PO DAILY [facility] Last Admin: 09/13/20 08:05 Dose: Not Given Documented by: Aspirin (Halfprin) 162 mg PO DAILY [facility] Last Admin: 09/13/20 08:03 Dose: 162 mg Documented by: Bupropion HCl (Wellbutrin) 100 mg PO DAILY [facility] Calcium Carbonate (Calcium Carbonate/Vitamin D 1250 Mg-200 Unit) 1 tab PO DAILY [facility] Last Admin: 09/13/20 08:03 Dose: 1 tab Documented by: Ceftriaxone Sodium (Rocephin) 1 gm IVPUSH DAILY [facility] Last Admin: 09/13/20 08:06 Dose: 1 gm Documented by: Enoxaparin Sodium (Lovenox) 40 mg SUBCUT Q24H [facility] Last Admin: 09/12/20 15:56 Dose: 40 mg Documented by: Famotidine (Pepcid) 20 mg PO DAILY [facility] Last Admin: 09/13/20 08:03 Dose: 20 mg Documented by: Losartan Potassium (Cozaar) 150 mg PO DAILY [facility] Last Admin: 09/13/20 08:03 Dose: 150 mg Documented by: Magnesium Oxide (Magnesium Oxide) 400 mg PO DAILY [facility] Last Admin: 09/13/20 08:03 Dose: 400 mg Documented by: Melatonin (Melatonin) 3 mg PO BEDTIME [facility] Last Admin: 09/12/20 19:45 Dose: 3 mg Documented by: Metoprolol Tartrate (Lopressor) 25 mg PO BID [facility] Last Admin: 09/13/20 08:05 Dose: Not Given Documented by: Multivitamins/Minerals (Thera M Plus) 1 tab PO DAILY [facility] Last Admin: 09/13/20 08:03 Dose: 1 tab Documented by: Ondansetron HCl (Zofran) 4 mg IVPUSH Q8H PRN PRN Reason: Nausea Sodium Chloride (Saline Flush) 10 ml FLUSH ASDIRECTED PRN PRN Reason: Keep Vein Open Discontinued Medications Acetaminophen (Tylenol) 325 mg PO Q4H PRN PRN Reason: Fever Ceftriaxone Sodium (Rocephin) 2 gm IVPUSH STAT ONE Stop: 09/12/20 12:37 Last Admin: 09/12/20 12:40 Dose: 2 gm Documented by: Sodium Chloride (Normal Saline) 1,000 mls @ 500 mls/hr IV ASDIRECTED [facility] Last Admin: 09/12/20 12:20 Dose: 500 mls/hr Documented by: Sodium Chloride (Normal Saline) 1,000 mls @ 125 mls/hr IV ASDIRECTED [facility] Ondansetron HCl (Zofran) 4 mg IVPUSH ONETIME ONE Stop: 09/12/20 11:58 Last Admin: 09/12/20 12:25 Dose: 4 mg Documented by: - Exam General: Alert, Oriented, Cooperative HEENT: EOMI, Mucous Membr. Moist/[place] Lungs: Normal Respiratory Effort, Crackles (Bilateral bases) Cardiovascular: Regular Rate, Regular Rhythm GI/Abdominal Exam: Normal Bowel Sounds, Soft, Non-Tender Extremities: Normal Inspection Skin: Warm, Dry Psy/Mental Status: Alert, Normal Affect, Normal Mood Sepsis Event Note - Evaluation Sepsis Screening Result: No Definite Risk - Focused Exam Vital Signs: Vital Signs Temp Pulse Pulse Resp BP BP Pulse Ox 09/13/20 08:03 117/54 L 09/13/20 05:23 97.9 F 74 16 117/54 L 99 09/13/20 02:49 75 113/62 09/13/20 02:00 99.2 F 75 18 104/38 L 97 09/12/20 21:46 99.3 F 82 18 107/50 L 94 L - Problem List & Annotations (1) Bacteremia due to Gram-negative bacteria SNOMED Code(s): 733514726720 Code(s): R78.81 - BACTEREMIA Status: Acute Current Visit: Yes (2) UTI, Urinary tract infectious disease SNOMED Code(s): 90311484 Code(s): N39.0 - URINARY TRACT INFECTION, SITE NOT SPECIFIED Status: Acute Current Visit: Yes (3) Lactic acidosis SNOMED Code(s): 87321112 Code(s): E87.2 - ACIDOSIS Status: Resolved Current Visit: Yes - Problem List Review Problem List Initiated/Reviewed/Updated: Yes - Assessment Assessment:: # Gram-negative bacteremia secondary to urinary tract infection # Sepsis - resolved - Patient presents with classic symptoms and positive UA. - Has received 2 g Rocephin IV - Blood cultures grow gram-negative rods - Last fever at 1999 on 09/12/2020 Plan: -We'll plan to watch for one more midnight -Repeat Rocephin tonight -Repeat lab work in the morning -As long as she is doing better tomorrow may possibly discharge on oral Cipro 500 mg twice a day through 09/19/2020 # Hypomagnesemia - Noted on admit Plan: - PO replacement - Recheck Mag tomorrow Chronic: - HTN: continue home meds - Mood disorder: continue home meds - Hx of stroke: continue home aspirin Code: level 3 DVT: lovenox SQ Diet: regular Dispo: Anticipate the patient will remain in hospital for one more midnight. As long as she is doing well clinically make plan to discharge home tomorrow on oral Cipro through 09/19/2020.
[2020-09-13] MEDS: Enoxaparin 40 MG/0.4 ML Syringe SUBCUT SCH (14:45)
[2020-09-13] MEDS: Melatonin 3 MG Tab PO SCH (19:29)
[2020-09-13] MEDS: Sodium Chloride 0.9% 10 ML Syringe FLUSH PRN (19:30)
[2020-09-14 07:01] LABS: ANION GAP 10.9 mmol/L (10-20)
[2020-09-14] MEDS: cefTRIAXone 1 GM Vial IVPUSH SCH (07:43)
[2020-09-14] MEDS: Sodium Chloride 0.9% 10 ML Syringe FLUSH PRN (07:43)
[2020-09-14] MEDS: Losartan 50 MG Tab PO SCH (07:44)
[2020-09-14] MEDS: Multivitamins with Iron/Calcium/Folic Acid/Minerals Tab PO SCH (07:44)
[2020-09-14] MEDS: Magnesium Oxide 400 MG Tab PO SCH (07:45)
[2020-09-14] MEDS: Calcium Carbonate/Vitamin D3 1250 MG-200 Unit Tab PO SCH (07:45)
[2020-09-14] MEDS: Aspirin 81 MG Tab.EC PO SCH (07:45)
[2020-09-14] MEDS: Famotidine 20 MG Tab PO SCH (07:45)
[2020-09-14] MEDS: amLODIPine 5 MG Tab PO SCH (07:45)
[2020-09-14] MEDS: Metoprolol Tartrate 25 MG Tab PO SCH (07:45)
[2020-09-14 08:33] VITALS: BP 163/86; PULSE 84
--- NOTE | 2020-09-14 09:19 | PCM.DCSUM1 ---
Discharge Summary - Hospital Course Free Text/Narrative:: Keri is an 80-year-old female who was admitted on 09/12/2020 for classic UTI symptoms. On arrival to the ER she was noted to meet criteria for sepsis with a fever, leukocytosis, lactic acidosis, and positive UA. She was initiated on 2 g of Rocephin and admitted for further monitoring. Urine grew gram-negative rods (e. coli) as did one out of 2 tubes of the blood culture. She received a total of 3 doses of IV Rocephin while she was in the hospital. This morning she notes that her symptoms have improved significantly. She has been afebrile for over 24 hours. Leukocytosis is resolved. She is eating, drinking, voiding normally. Feels like she is ready to go home. Will send home on oral Cipro 500 mg twice a day for 5 more days for a full week of treatment of acute complicated cystitis. Patient should have follow-up with her primary care doctor 2 weeks after hospitalization. No other changes to her medication regiment during the stay. - Discharge Data Discharge Date: 09/14/20 Discharge Disposition: Home, Self-Care 01 Condition: Good - Referral to Home Health Primary Care Physician: Lance Chan PA-C - Discharge Diagnosis/Problem(s) (1) Bacteremia due to Gram-negative bacteria SNOMED Code(s): 232490097638 ICD Code: R78.81 - BACTEREMIA Status: Acute Current Visit: Yes (2) UTI, Urinary tract infectious disease SNOMED Code(s): 72907259 ICD Code: N39.0 - URINARY TRACT INFECTION, SITE NOT SPECIFIED Status: Acute Current Visit: Yes (3) Lactic acidosis SNOMED Code(s): 75515956 ICD Code: E87.2 - ACIDOSIS Status: Resolved Current Visit: Yes - Patient Instructions Diet: Usual Diet as Tolerated Activity: As Tolerated Driving: May Drive Today Showering/Bathing: May Shower Notify Provider of: Fever, Increased Pain, Nausea and/or Vomiting - Discharge Plan *PRESCRIPTION DRUG MONITORING PROGRAM REVIEWED*: Not Applicable *COPY OF PRESCRIPTION DRUG MONITORING REPORT IN PATIENT MARQU[place]: Not Applicable Home Medications: Home Meds Aspirin [Halfprin] 162 mg PO DAILY 07/05/16 [History] Calcium Carbonate/Vitamin D3 [Calcium 500-Vit D3 200 Tablet] 1 tab PO DAILY 07/05/16 [History] Famotidine [Pepcid] 20 mg PO DAILY 07/05/16 [History] Melatonin 3 mg PO BEDTIME 07/05/16 [History] Metoprolol Tartrate [Lopressor] 50 mg PO BID 07/05/16 [History] amLODIPine [Norvasc] 5 mg PO DAILY 07/05/16 [History] Multivitamin [Multivitamins] 1 tab PO DAILY 09/07/16 [History] Calcium Carb,Gluc/Mag Ox,Gluc [Calcium Magnesium Caplet] 1 each PO DAILY 09/12/20 [History] Valsartan 320 mg PO DAILY 09/12/20 [History] buPROPion [Wellbutrin] 100 mg PO DAILY 09/12/20 [History] Ciprofloxacin HCl [Cipro] 500 mg PO BID 5 Days #10 tablet 09/14/20 [Rx] Forms: ED Department Discharge Referrals: Lance Chan PA-C [Primary Care Provider] - 10/04/20 3:30 pm (You have a follow up appt. with Lance Chan on October 04, 2020 at 3:30. You also have a wellness visit on 2020 at 1:30. Please wear a mask to your appts. ) - Discharge Summary/Plan Comment DC Time >30 min.: No - Patient Data Vitals - Most Recent: Last Vital Signs Temp 99.7 F 09/14/20 08:28 Pulse 84 09/14/20 08:28 Resp 17 09/14/20 08:28 BP 163/86 H 09/14/20 08:28 Pulse Ox 95 09/14/20 08:28 Weight - Most Recent: 130 lb I&O - Last 24 hours: Intake & Output 09/13/20 09/14/20 09/14/20 22:59 06:59 14:59 Intake Total 400 120 Output Total 900 Balance 400 -900 120 Lab Results - Last 24 hrs: Laboratory Results - last 24 hr 09/13/20 09/14/20 09/14/20 Range/Units 17:17 06:15 06:24 WBC 9.0 (4.0-10.0) x10^3/uL RBC 4.26 (4.00-5.50) x10^6/uL Hgb 12.5 (12.0-16.0) g/dL Hct 38.5 (33.0-47.0) % MCV 90.4 (78.0-93.0) fL MCH 29.3 (26.0-32.0) pg MCHC 32.5 (32.0-36.0) g/dL RDW Coeff of Anette 13.4 (10.0-15.0) % Plt Count 219 (130-400) x10^3/uL Neut % (Auto) 70.9 (50.0-80.0) % Lymph % (Auto) 15.1 L (25.0-50.0) % [place] % (Auto) 13.0 H (2.0-11.0) % Eos % (Auto) 0.9 (0.0-4.0) % Baso % (Auto) 0.1 L (0.2-1.2) % Sodium (136-145) mmol/L Potassium (3.5-5.1) mmol/L Chloride (98-107) mmol/L Carbon Dioxide (21-32) mmol/L Anion Gap (10-20) mmol/L BUN (7-18) mg/dL Creatinine (0.55-1.02) mg/dL Est Cr Clr Drug Dosing mL/min Estimated GFR (MDRD) Glucose (74-106) mg/dL POC Glucose 96 104 (74-106) mg/dL Calcium (8.5-10.1) mg/dL Magnesium (1.8-2.4) mg/dL 09/14/20 Range/Units 06:24 WBC (4.0-10.0) x10^3/uL RBC (4.00-5.50) x10^6/uL Hgb (12.0-16.0) g/dL Hct (33.0-47.0) % MCV (78.0-93.0) fL MCH (26.0-32.0) pg MCHC (32.0-36.0) g/dL RDW Coeff of Anette (10.0-15.0) % Plt Count (130-400) x10^3/uL Neut % (Auto) (50.0-80.0) % Lymph % (Auto) (25.0-50.0) % [place] % (Auto) (2.0-11.0) % Eos % (Auto) (0.0-4.0) % Baso % (Auto) (0.2-1.2) % Sodium 136 (136-145) mmol/L Potassium 3.9 (3.5-5.1) mmol/L Chloride 101 (98-107) mmol/L Carbon Dioxide 28 (21-32) mmol/L Anion Gap 10.9 (10-20) mmol/L BUN 15 (7-18) mg/dL Creatinine 1.1 H (0.55-1.02) mg/dL Est Cr Clr Drug Dosing 34.05 mL/min Estimated GFR (MDRD) 48 Glucose 102 (74-106) mg/dL POC Glucose (74-106) mg/dL Calcium 9.4 (8.5-10.1) mg/dL Magnesium 2.0 (1.8-2.4) mg/dL [facility] Results - Last 24 hrs: Microbiology 09/12/20 12:12 Aerobic Blood Culture - Preliminary Blood - Venous NO GROWTH AFTER 1 DAY Anaerobic Blood Culture - Preliminary Gram Negative Rods 09/12/20 11:55 Urine Culture - Final Urine, Clean Catch Escherichia Coli 09/12/20 12:16 Aerobic Blood Culture - Preliminary Blood - Venous - Lab Draw NO GROWTH AFTER 1 DAY Anaerobic Blood Culture - Preliminary NO GROWTH AFTER 1 DAY Med Orders - Current: Current Medications Acetaminophen (Tylenol) 650 mg PO Q4H PRN PRN Reason: Fever Amlodipine Besylate (Norvasc) 5 mg PO DAILY [facility] Last Admin: 09/14/20 07:45 Dose: 5 mg Documented by: Aspirin (Halfprin) 162 mg PO DAILY [facility] Last Admin: 09/14/20 07:45 Dose: 162 mg Documented by: Bupropion HCl (Wellbutrin) 75 mg PO DAILY [facility] Last Admin: 09/14/20 07:45 Dose: 75 mg Documented by: Calcium Carbonate (Calcium Carbonate/Vitamin D 1250 Mg-200 Unit) 1 tab PO DAILY [facility] Last Admin: 09/14/20 07:45 Dose: 1 tab Documented by: Ceftriaxone Sodium (Rocephin) 1 gm IVPUSH DAILY [facility] Last Admin: 09/14/20 07:43 Dose: 1 gm Documented by: Enoxaparin Sodium (Lovenox) 40 mg SUBCUT Q24H [facility] Last Admin: 09/13/20 14:45 Dose: 40 mg Documented by: Famotidine (Pepcid) 20 mg PO DAILY [facility] Last Admin: 09/14/20 07:45 Dose: 20 mg Documented by: Losartan Potassium (Cozaar) 150 mg PO DAILY [facility] Last Admin: 09/14/20 07:44 Dose: 150 mg Documented by: Magnesium Oxide (Magnesium Oxide) 400 mg PO DAILY [facility] Last Admin: 09/14/20 07:45 Dose: 400 mg Documented by: Melatonin (Melatonin) 3 mg PO BEDTIME [facility] Last Admin: 09/13/20 19:29 Dose: 3 mg Documented by: Metoprolol Tartrate (Lopressor) 25 mg PO BID [facility] Last Admin: 09/14/20 07:45 Dose: 25 mg Documented by: Multivitamins/Minerals (Thera M Plus) 1 tab PO DAILY [facility] Last Admin: 09/14/20 07:44 Dose: 1 tab Documented by: Ondansetron HCl (Zofran) 4 mg IVPUSH Q8H PRN PRN Reason: Nausea Sodium Chloride (Saline Flush) 10 ml FLUSH ASDIRECTED PRN PRN Reason: Keep Vein Open Last Admin: 09/14/20 07:43 Dose: 10 ml Documented by: Discontinued Medications Acetaminophen (Tylenol) 325 mg PO Q4H PRN PRN Reason: Fever Ceftriaxone Sodium (Rocephin) 2 gm IVPUSH STAT ONE Stop: 09/12/20 12:37 Last Admin: 09/12/20 12:40 Dose: 2 gm Documented by: Sodium Chloride (Normal Saline) 1,000 mls @ 500 mls/hr IV ASDIRECTED [facility] Last Admin: 09/12/20 12:20 Dose: 500 mls/hr Documented by: Sodium Chloride (Normal Saline) 1,000 mls @ 125 mls/hr IV ASDIRECTED [facility] Ondansetron HCl (Zofran) 4 mg IVPUSH ONETIME ONE Stop: 09/12/20 11:58 Last Admin: 09/12/20 12:25 Dose: 4 mg Documented by: - Exam General: Reports: Alert, Oriented Neck: Reports: Supple Lungs: Reports: Normal Respiratory Effort, Crackles (faint, right lung base (improved from yesterday)) Cardiovascular: Reports: Regular Rate, Regular Rhythm GI/Abdominal Exam: Normal Bowel Sounds, Soft, Non-Tender, No Distention Extremities: Normal Inspection, Non-Tender Skin: Reports: Warm, Dry, Intact Psy/Mental Status: Reports: Alert, Normal Affect, Normal Mood
== END 2020-09-14 10:25 | disposition home or self-care (01) | DRG 872 ==
LOC: VM.ED 11:45 → VM.MS 13:07
PROVIDERS: ADMIT Internal Medicine; ATTEND Internal Medicine
DX: N39.0 Urinary tract infection, site not specified (principal); E87.2 Acidosis; A41.59 Other Gram-negative sepsis; K90.0 Celiac disease; N30.00 Acute cystitis without hematuria; A41.9 Sepsis, unspecified organism; Z88.0 Allergy status to penicillin; Z88.8 Allergy status to other drugs, medicaments and biological substances; Z79.82 Long term (current) use of aspirin; Z79.899 Other long term (current) drug therapy; Z86.73 Personal history of transient ischemic attack (TIA), and cerebral infarction without residual deficits; I10 Essential (primary) hypertension; G47.00 Insomnia, unspecified; M81.0 Age-related osteoporosis without current pathological fracture; F39 Unspecified mood [affective] disorder; E83.42 Hypomagnesemia; Z20.828 Contact with and (suspected) exposure to other viral communicable diseases
CPT/HCPCS: 36415; 71045; 80048; 80053; 81001; 82962; 83605; 83735; 85025; 85610; 85730; 86140; 87040; 87077; 87086; 87088; 87186; 87804; 87804-59; 96374; 96375; 99284; 99284-25; A9270-GY; J0696; J1650; J2405; J7030; U0002

== ENCOUNTER 2021-05-13 12:20 | Emergency (ER) | payer MEDICARE ==
--- NOTE | 2021-05-13 12:24 | EDM.PDOC ---
ED HPI GENERAL MEDICAL PROBLEM - General Stated Complaint: right hip pain Time Seen by Provider: 05/13/21 12:24 Source of Information: Reports: Patient History Limitations: Reports: No Limitations - History of Present Illness INITIAL COMMENTS - FREE TEXT/NARRATIVE: Patient comes emergency department today from home with complaints of a fall and right hip pain. Just prior to arrival the patient was at home when she stood up to walk somewhere her rubber shoes got stuck to the carpet she lost her balance and fell landing on her right hip. She did not hit her head. She has no head neck or back pain. She had no weakness dizziness lightheadedness palpitations or syncope prior to the episode. She clearly lost her balance. She did a similar episode yesterday when she was in her bathroom. She did not hit her head at that time she had no loss of conscious she was asymptomatic with that fall as well and she was not injured at that time. Upon arrival she denies any headache visual acuity changes. No chest pain or shortness of breath or difficulty breathing. No abdominal pain no nausea or vomiting. She complains of pain in her right hip. No paresthesias of the upper or lower extremities. As of note when I was doing the patient's physical exam I noted that her speech was a little bit thick and slurred and she had a small very slight left facial droop. The patient does have a history of a stroke of about 10 years ago but has no longstanding neurological deficits according to the patient or her daughter. She has had an increase in her Wellbutrin over the past 3 days which is made her mouth very dry. Right Posterior Sacral Pain Score (Numeric/FACES): 5 - Related Data Allergies Allergy/AdvReac Type Severity Reaction Status Date / Time Penicillins Allergy Hives Verified 09/12/20 13:02 sulfamethoxazole Allergy Hives Verified 05/13/21 13:55 [From Bactrim] trimethoprim [From Bactrim] Allergy Hives Verified 05/13/21 13:55 Home Meds: Home Meds Aspirin [Halfprin] 162 mg PO DAILY 07/05/16 [History] Famotidine [Pepcid] 20 mg PO BID 07/05/16 [History] Melatonin 3 mg PO BEDTIME 07/05/16 [History] Metoprolol Tartrate [Lopressor] 50 mg PO DAILY 07/05/16 [History] amLODIPine [Norvasc] 5 mg PO DAILY 07/05/16 [History] Multivitamin [Multivitamins] 1 tab PO DAILY 09/07/16 [History] Calcium Carb,Gluc/Mag Ox,Gluc [Calcium Magnesium Caplet] 1 each PO DAILY 09/12/20 [History] Valsartan 320 mg PO DAILY 09/12/20 [History] buPROPion [Wellbutrin] 300 mg PO DAILY 09/12/20 [History] Alendronate Sodium [Fosamax] 70 mg PO Q7D 05/13/21 [History] Cholecalciferol (Vitamin D3) [Vitamin D3] 2,000 unit PO DAILY 05/13/21 [History] Ferrous Sulfate 325 mg PO DAILY 05/13/21 [History] Past Medical History HEENT History: Reports: Cataract Cardiovascular History: Reports: Hypertension Respiratory History: Reports: None Gastrointestinal History: Reports: Celiac Disease, Other (See Below) Other Gastrointestinal History: celiac disease Genitourinary History: Reports: None Musculoskeletal History: Reports: Other (See Below) Other Musculoskeletal History: rt patella fx Neurological History: Reports: TIA Psychiatric History: Reports: Other (See Below) Other Psychiatric History: insomnia Endocrine/Metabolic History: Reports: Osteoporosis Hematologic History: Reports: None Immunologic History: Reports: None Oncologic (Cancer) History: Reports: None Dermatologic History: Reports: None - Past Surgical History Head Surgeries/Procedures: Reports: None HEENT Surgical History: Reports: Cataract Surgery Cardiovascular Surgical History: Reports: None GI Surgical History: Reports: Colonoscopy Endocrine Surgical History: Reports: None Neurological Surgical History: Reports: None Musculoskeletal Surgical History: Reports: Other (See Below) Other Musculoskeletal Surgeries/Procedures:: open reduction left radius Social & Family History - Caffeine Use Caffeine Use: Reports: Coffee Review of Systems - Review of Systems Review Of Systems: Comprehensive ROS is negative, except as noted in HPI. ED EXAM, GENERAL - Physical Exam Exam: See Below Exam Limited By: No Limitations General Appearance: Alert, WD/WN, No Apparent Distress Eye Exam: Bilateral Eye: EOMI Ears: Normal External Exam Nose: Normal Inspection Throat/Mouth: Normal Inspection Head: Atraumatic, Normocephalic Neck: Normal Inspection, Supple, Non-Tender, Full Range of Motion Respiratory/Chest: No Respiratory Distress, Lungs Clear, Normal Breath Sounds, No Accessory Muscle Use, Chest Non-Tender Cardiovascular: Normal Peripheral Pulses, Regular Rate, Rhythm Peripheral Pulses: 2+: Posterior Tibial (L), Posterior Tibial (R), Dorsalis Pedis (L), Dorsalis Pedis (R) GI/Abdominal: Normal Bowel Sounds, Soft, Non-Tender, Pelvis Stable (Although quite painful to the right hip.) (Female) Exam: Deferred Rectal (Female) Exam: Deferred Back Exam: Normal Inspection, Full Range of Motion. No: Paraspinal Tenderness, Vertebral Tenderness Extremities: No Pedal Edema, Normal Capillary Refill. No: Normal Inspection (She has quite a bit of pain on the left greater trochanter. No overt bony deformity. No rotation or shortening of the right lower extremity. The rest of the lower extremity is unremarkable.) Neurological: Alert, Oriented, Normal Cognition, No Motor/Sensory Deficits, Other (No ataxia no weekness of extremities. No pronator drift. No other signs of a stroke. One-point for slurred speech 1 point for left facial droop for a total NIH stroke scale of 2.). No: CN II-XII Intact (all intact except for a subtle left facial droop that is new the past few days and some thick speech. ) Psychiatric: Normal Affect, Normal Mood Skin Exam: Warm, Dry, Intact, Normal Color, No Rash Lymphatic: No Adenopathy Course - Vital Signs Last Recorded V/S: Last Vital Signs Temp 98.2 F 05/13/21 12:20 Pulse 74 05/13/21 12:20 Resp 18 05/13/21 12:20 BP 143/73 H 05/13/21 12:20 Pulse Ox 95 05/13/21 12:20 - Orders/Labs/Meds Labs: Laboratory Tests 05/13/21 05/13/21 05/13/21 Range/Units 13:28 13:28 13:28 WBC 7.1 (4.0-10.0) x10^3/uL RBC 4.42 (4.00-5.50) x10^6/uL Hgb 13.3 (12.0-16.0) g/dL Hct 39.5 (33.0-47.0) % MCV 89.4 (78.0-93.0) fL MCH 30.1 (26.0-32.0) pg MCHC 33.7 (32.0-36.0) g/dL RDW Coeff of Anette 13.2 (10.0-15.0) % Plt Count 280 (130-400) x10^3/uL Immature Gran % (Auto) 0.10 (0.00-0.43) % Neut % (Auto) 67.3 (50.0-80.0) % Lymph % (Auto) 24.3 L (25.0-50.0) % [place] % (Auto) 6.6 (2.0-11.0) % Eos % (Auto) 1.6 (0.0-4.0) % Baso % (Auto) 0.1 L (0.2-1.2) % Neut # (Auto) 4.8 (1.8-7.7) x10^3/uL Lymph # (Auto) 1.7 (1.0-4.8) x10^3/uL [place] # (Auto) 0.5 (0.0-0.8) x10^3/uL Eos # (Auto) 0.1 (0.0-0.5) x10^3/uL Baso # (Auto) 0.0 (0.0-0.2) x10^3/uL Immature Gran # (Auto) 0.01 (0.00-0.07) x10^3/uL PT 10.4 (9.9-12.5) SEC INR 0.9 L (2.0-3.5) APTT 25.2 L (25.6-32.8) SEC Sodium 141 (136-145) mmol/L Potassium 3.3 L (3.5-5.1) mmol/L Chloride 104 (98-107) mmol/L Carbon Dioxide 30 (21-32) mmol/L Anion Gap 10.3 (5-15) mmol/L BUN 15 (7-18) mg/dL Creatinine 1.0 (0.55-1.02) mg/dL Est Cr Clr Drug Dosing TNP Estimated GFR (MDRD) 53 Glucose 107 H (70-99) mg/dL Calcium 8.9 (8.5-10.1) mg/dL Corrected Calcium 9.5 (8.5-10.1) mg/dL Total Bilirubin 0.2 (0.2-1.0) mg/dL AST 19 (15-37) U/L ALT 18 (14-59) U/L Alkaline Phosphatase 81 (46-116) U/L Total Protein 6.0 L (6.4-8.2) g/dL Albumin 3.3 L (3.4-5.0) g/dL Globulin 2.7 Albumin/Globulin Ratio 1.22 Meds: Medications Discontinued Medications Generic Name Dose Route Start Last Admin Trade Name Freq PRN Reason Stop Dose Admin Morphine Sulfate 2 mg 05/13/21 12:33 05/13/21 12:43 Morphine 2 Mg/Ml Syringe IVPUSH 05/13/21 12:34 2 mg ONETIME ONE Administration Morphine Sulfate 4 mg 05/13/21 13:39 05/13/21 13:44 Morphine 4 Mg/Ml Syringe IVPUSH 05/13/21 13:40 4 mg ONETIME ONE Administration Morphine Sulfate 2 mg 05/13/21 15:30 05/13/21 16:18 Morphine 2 Mg/Ml Syringe IVPUSH 2 mg Q2H PRN Administration Pain Ondansetron HCl 4 mg 05/13/21 12:33 05/13/21 12:40 Ondansetron 4 Mg/2 Ml Sdv IV 05/13/21 12:34 4 mg ONETIME ONE Administration - Radiology Interpretation Free Text/Narrative:: Acute mildly fragmented intertrochanteric fracture of the right femoral neck per radiology. CT of the head per radiology shows no acute intracranial findings. No int racranial hemorrhage extra-axial fluid collection mass or acute ischemia - Re-Assessments/Exams Free Text/Narrative Re-Assessment/Exam: 05/13/21 12:55 IV was established labs are drawn. 4 mg Zofran prophylactic nausea. Morphine 2 mg IV push. Patient clearly has a intertrochanteric fracture of the right hip when initially reviewed extemporaneously by myself. The rest of the pelvis appears intact without any osseous abnormality. The patient was given more morphine for pain. With the concerns of the left facial droop as well as the thick speech CT of the head was completed with her symptoms lasting from anywhere from 2 to 4 days prior to arrival. No acute findings or any comment of acute or subacute infarct in the CT scan. I called and spoke with Dr. Chawla at [facility] the stroke neurologist and no guidance at this time as the patient will be transfered to [facility] for the broken hip and follow up will be completed there. I then spoke with DR. Styles at [facility] hospitalist program. HPI ER course were discussed with him. His questions were answered and he accepted this patient in transfer with no new orders. I discussed my concerns of not only the intertrochanteric fracture of the right hip as well as the subtle facial droop and slurring of the speech although this is not acute. This can be followed up through [facility] during her stay for her hip fracture. The daughter and the patient are comfortable with this plan and their questions are answered. Departure - Departure Time of Disposition: 14:00 Disposition: DC/Tfer to [facility] 02 Clinical Impression: Facial droop Hip fracture, intertrochanteric Qualifiers: Encounter type: initial encounter Fracture type: closed Fracture alignment: displaced Laterality: right Qualified Code(s): S72.141A - Displaced intertrochanteric fracture of right femur, initial encounter for closed fracture - Discharge Information Referrals: Lance Chan PA-C [Primary Care Provider] - Forms: Interfacility Transfer EMTREYES
[2021-05-13] MEDS ORDERED: Morphine 2 MG/ML SYRINGE IVPUSH ONE (12:33)
[2021-05-13] MEDS ORDERED: Ondansetron 4 MG/2 ML SDV IV ONE (12:33)
[2021-05-13 13:00] VITALS: BP 143/73; PULSE 74
[2021-05-13] MEDS ORDERED: Morphine 4 MG/ML Syringe IVPUSH ONE (13:39)
[2021-05-13 13:57] LABS: PTT,PARTIAL THROMBOPLSTIN TIME 25.2 SEC (25.6-32.8)
[2021-05-13 13:59] LABS: CHLORIDE,CL 104 mmol/L (98-107); SODIUM,NA 141 mmol/L (136-145)
[2021-05-13 14:00] LABS: ANION GAP 10.3 mmol/L (5-15)
--- NOTE | 2021-05-13 14:00 | CR ---
[id number] RAD/RAD Pelvis 1V W 2V Right Hip EXAM: 3 VIEWS RIGHT HIP. INDICATION: FALL RIGHT HIP PAIN. COMPARISON: None. DISCUSSION: Acute multi fragmentary intertrochanteric fracture of the right femoral neck. There is minimal displacement. No significant impaction. No dislocation. No other fractures are identified. IMPRESSION: 1. As above. Cory Singh DO 05/13/21 [id number] Thank you for allowing us to participate in the care of your patient.
--- NOTE | 2021-05-13 14:40 | CT ---
[id number] CT/CT Head WO IV EXAM: CT Head WO IV CLINICAL DATA: FACIAL DROOP - LEFT, RECENT FALL. COMPARISON STUDY: None FINDINGS: No intracranial hemorrhage, extra-axial fluid collection, mass, or acute ischemia. Generalized parenchymal atrophy with scattered areas of nonspecific white matter disease, commonly seen as sequela of chronic microvascular ischemia. Soft tissues are unremarkable. Paranasal sinuses and mastoid air cells are clear. IMPRESSION: No acute intracranial findings. Cory Singh DO 05/13/21 [id number] Thank you for allowing us to participate in the care of your patient.
[2021-05-13] MEDS ORDERED: Morphine 2 MG/ML SYRINGE IVPUSH PRN (15:30)
== END 2021-05-13 17:32 | disposition short-term general hospital (02) ==
LOC: VM.ED 12:20
DX: S72.141A Displaced intertrochanteric fracture of right femur, initial encounter for closed fracture (principal); R29.810 Facial weakness; I10 Essential (primary) hypertension; Z88.0 Allergy status to penicillin; Z88.2 Allergy status to sulfonamides; Z79.82 Long term (current) use of aspirin; Z79.899 Other long term (current) drug therapy; W18.30XA Fall on same level, unspecified, initial encounter; Y92.009 Unspecified place in unspecified non-institutional (private) residence as the place of occurrence of the external cause
CPT/HCPCS: 36415; 70450; 80053; 85025; 85610; 85730; 96374; 96375; 96376; 99284; 99285-25; J2270; J2405

== ENCOUNTER 2024-08-28 11:32 | Day surgery (SDC) | payer MEDICARE ==
[2024-08-28] MEDS: Lactated Ringers 1,000 ML IV SCH (12:01)
[2024-08-28] MEDS ORDERED: Propofol 200 MG/20 ML SDV ONE (13:26)
[2024-08-28 14:37] VITALS: BP 146/70; PULSE 64
== END 2024-08-28 14:58 | disposition home or self-care (01) ==
LOC: VM.SDS 11:32
PROVIDERS: ATTEND Family Medicine
DX: K29.50 Unspecified chronic gastritis without bleeding (principal); K20.90 Esophagitis, unspecified without bleeding; K44.9 Diaphragmatic hernia without obstruction or gangrene; I10 Essential (primary) hypertension; K90.0 Celiac disease; F32.A Depression, unspecified; M81.0 Age-related osteoporosis without current pathological fracture; E21.0 Primary hyperparathyroidism; Z79.899 Other long term (current) drug therapy; Z88.0 Allergy status to penicillin; Z88.2 Allergy status to sulfonamides
CPT/HCPCS: 00731; 99100; J2704; J7120